=== PATIENT | male | born 1965 | race Caucasian/White ===

== ENCOUNTER 2020-06-01 01:18 | Inpatient (IN) ==
--- NOTE | 2020-06-01 01:33 | DR.URIAD ---
HPI Time Seen Time Seen by Provider: 06/01/20 01:25 HPI Comment HPI Comment: 54 y/o overweight WM with no h/o of cigarettes, copd or asthma with worsening sob for the past day or so; diagnosed with covid19 a week ago today and currently on second round of abx and steroids due to persistent cough and congestion; "low grade" fever has recurred; no cp, palpitations, abd pain, n/v/d. ROS Review of Systems Eyes: No Symptoms Reported ENTM: No Symptoms Reported Gastrointestinal/Abdominal: No Symptoms Reported Genitourinary: No Symptoms Reported Neurological: No Symptoms Reported Musculoskeletal: No Symptoms Reported Integumentary: No Symptoms Reported Hematologic/Lymphatic: No Symptoms Reported Endocrine: No Symptoms Reported Psychiatric: No Symptoms Reported PE Vital Signs Vitals: Temperature 98.6 F Pulse Rate 102 Respiratory Rate 26 Blood Pressure 167/93 O2 Sat by Pulse Oximetry 89 General Limitations: No Limitations General Appearance: In No Apparent Distress Head Head Exam: Normal Inspection Eyes Eye exam: Normal Appearance ENT ENT Exam: Normal Exam External Ear Exam: Normal External Inspection TM/Canal Exam: Bilateral: Normal Nose Exam: Normal Nose Exam Nasal Speculum Exam: Bilateral: Normal Mouth Exam: Normal Inspection Throat Exam: Normal Inspection Neck Neck Exam: Normal Inspection Chest Chest Inspection: Normal Inspection Respiratory Respiratory Exam: Right: Crackles and Lower: Crackles Cardiovascular Cardiovascular Exam: Regular Rate and Normal Rhythm Abdominal Exam Abdominal Exam: Normal Inspection, Normal Bowel Sounds and Soft Extremeties Extremities Exam: Normal Inspection Back Back Exam: Normal Inspection Neurologic Neurological Exam: Alert and Oriented X3 Psychiatric Psychiatric Exam: Normal Affect and Normal Mood Skin Skin Exam: Warm, Dry, Intact and Normal Color COURSE Consultation Call Returned: 03:43 (Dr Bell accepts admission) ROR Labs Reviewed Laboratory Results Reviewed?: Yes Result Diagrams: 06/01/20 01:30 06/01/20 01:30 Laboratory: WBC 18.7 X10^3/uL (3.6-10.0) H 06/01/20 01:30 RBC 5.84 X10^6/uL (4.7-6.0) 06/01/20 01:30 Hgb 18.2 g/dL (13.5-18.0) H 06/01/20 01:30 Hct 53.7 % (42.0-54.0) 06/01/20 01:30 MCV 92.0 fL (80.0-100.0) 06/01/20 01:30 MCH 31.2 pg (27.0-34.0) 06/01/20 01:30 MCHC 33.9 g/dL (33.0-35.0) 06/01/20 01:30 RDW 13.5 % (11.6-16.5) 06/01/20 01:30 Plt Count 234 X10^3/uL (150.0-450.0) 06/01/20 01:30 Plt Count Comment Adequate (ADEQUATE) 06/01/20 01:30 MPV 8.0 fL (7.4-11.0) 06/01/20 01:30 Neut % (Auto) 92.1 % (42.0-75.0) H 06/01/20 01:30 Lymph % (Auto) 2.9 % (21.0-51.0) L 06/01/20 01:30 [place] % (Auto) 4.9 % (0.0-13.0) 06/01/20 01:30 Eos % (Auto) 0.0 % (0.9-2.9) L 06/01/20 01:30 Baso % (Auto) 0.1 % (0.2-1.0) L 06/01/20 01:30 Neut # (Auto) 17.2 x10^3/uL (2.2-4.8) H 06/01/20 01:30 Lymph # (Auto) 0.5 X10^3/uL (1.3-2.9) L 06/01/20 01:30 [place] # (Auto) 0.9 x10^3/uL (0.3-0.8) H 06/01/20 01:30 Eos # (Auto) 0.0 x10^3/uL (0.0-0.2) 06/01/20 01:30 Baso # (Auto) 0.0 X10^3/uL (0.0-0.1) 06/01/20 01:30 Absolute Nucleated RBC 0.1 /100WBC 06/01/20 01:30 Total Counted 100 06/01/20 01:30 Neutrophils % (Manual) 90 % (39-76) H 06/01/20 01:30 Band Neutrophils % 3 % (0-10) 06/01/20 01:30 Lymphocytes % (Manual) 5 % (13-43) L 06/01/20 01:30 Monocytes % (Manual) 2 % (4-9) L 06/01/20 01:30 Plt Morphology Comment Normal (NORMAL) 06/01/20 01:30 RBC Morphology Normal (NORMAL) 06/01/20 01:30 ESR 16 MM/HOUR (0-15) H 06/01/20 01:30 D-Dimer 0.24 ug/ml (0.0-0.57) 06/01/20 01:30 Sample Site Rrad 06/01/20 01:44 ABG pH 7.470 (7.35-7.45) H 06/01/20 01:44 ABG pCO2 38.0 mmHg (35.0-45.0) 06/01/20 01:44 ABG pO2 58.0 mmHg (80.0-100.0) L 06/01/20 01:44 ABG HCO3 27.7 mmol/L (22-26) H 06/01/20 01:44 ABG O2 Saturation 91.0 % (90-100) 06/01/20 01:44 ABG Base Excess 3.9 mmol/L (-2.0-2.0) H 06/01/20 01:44 Skyler Test Pos 06/01/20 01:44 A-a Gradient 123.0 mmHg 06/01/20 01:44 FiO2 32.0 06/01/20 01:44 Blood Gas Comments Tomas abg well-mtf 06/01/20 01:44 Sodium 130 mmol/L (136-145) L 06/01/20 01:30 Corrected Sodium 134 mmol/L (136-145) L 06/01/20 01:30 Potassium 4.4 mmol/L (3.5-5.1) 06/01/20 01:30 Chloride 94 mmol/L (98-107) L 06/01/20 01:30 Carbon Dioxide 27.0 mmol/L (21-32) 06/01/20 01:30 BUN 17 mg/dL (7-18) 06/01/20 01:30 Creatinine 1.35 mg/dL (0.70-1.30) H 06/01/20 01:30 Est GFR (MDRD) Af Amer > 60 (>60) 06/01/20 01:30 Est GFR (MDRD) Non-Af 58 (>60) L 06/01/20 01:30 Glucose 247 mg/dL (65-99) H 06/01/20 01:30 Calcium 8.6 mg/dL (8.5-10.1) 06/01/20 01:30 Corrected Calcium 9.3 mg/dL (8.5-10.1) 06/01/20 01:30 Ferritin 957 ng/mL (26-388) H 06/01/20 01:30 Total Bilirubin 0.70 mg/dL (0.2-1.0) 06/01/20 01:30 AST 24 Units/L (15-37) 06/01/20 01:30 ALT 90 Units/L (12-78) H 06/01/20 01:30 Alkaline Phosphatase 93 Units/L (46-116) 06/01/20 01:30 Lactate Dehydrogenase 337 Units/L (85-227) H 06/01/20 01:30 C-Reactive Protein 126.40 mg/L (0-3.0) H 06/01/20 01:30 Total Protein 7.1 g/dL (6.4-8.2) 06/01/20 01:30 Albumin 3.1 g/dL (3.4-5.0) L 06/01/20 01:30 Globulin 4.0 g/dL (2.5-4.5) 06/01/20 01:30 Albumin/Globulin Ratio 0.8 Ratio (1.1-2.1) L 06/01/20 01:30 XRAY XRAY Interpreted by: Radiologist X-ray Results: cxr: Multifocal alveolar airspace disease is seen in the right and left lung. Opioid Opioid Risk Tool Total: 0 Total Score Risk Category: Low Risk Copyright: Linder LR predicting aberrant behaviors Diagnosis Discharge Problem: Pneumonia due to 2019-nCoV, COVID-19, Hypoxia, Acute hyponatremia, Hyperglycemi a Sepsis Qualifiers: Sepsis type: sepsis due to unspecified organism Sepsis acute organ dysfunction status: with acute organ dysfunction Severe sepsis acute organ dysfunction type: acute renal failure Acute renal failure type: unspecified Severe sepsis shock status: without septic shock Qualified Code(s): A41.9 - Sepsis, unspecified organism Instructions Instructions: Sepsis, Adult Forms: Patient Portal Social Distancing
[2020-06-01 01:48] LABS: ABG BASE EXCESS 3.9 mmol/L (-2.0-2.0); ABG HCO3 27.7 mmol/L (22-26)
[2020-06-01 01:48] LABS: BASOPHILS % (AUTO) 0.1 % (0.2-1.0); HEMATOCRIT 53.7 % (42.0-54.0); HEMOGLOBIN 18.2 g/dL (13.5-18.0); LYMPHOCYTES # (AUTO) 0.5 X10^3/uL (1.3-2.9); LYMPHOCYTES % (AUTO) 2.9 % (21.0-51.0); MEAN CORPUSCULAR HEMOGLOBIN 31.2 pg (27.0-34.0); MEAN CORPUSCULAR HGB CONC 33.9 g/dL (33.0-35.0); MONOCYTES # (AUTO) 0.9 x10^3/uL (0.3-0.8); MONOCYTES % (AUTO) 4.9 % (0.0-13.0); NEUTROPHILS # (AUTO) 17.2 x10^3/uL (2.2-4.8); NEUTROPHILS % (AUTO) 92.1 % (42.0-75.0); PLATELET COUNT 234 X10^3/uL (150.0-450.0); RED BLOOD COUNT 5.84 X10^6/uL (4.7-6.0); RED CELL DISTRIBUTION WIDTH 13.5 % (11.6-16.5); WHITE BLOOD COUNT 18.7 X10^3/uL (3.6-10.0)
[2020-06-01 01:49] LABS: ABG ALLEN TEST POS
[2020-06-01 01:58] LABS: ALANINE AMINOTRANSFERASE 90 Units/L (12-78); ALBUMIN 3.1 g/dL (3.4-5.0); ALKALINE PHOSPHATASE 93 Units/L (46-116); ASPARTATE AMINO TRANSFERASE 24 Units/L (15-37); BLOOD UREA NITROGEN 17 mg/dL (7-18); CALCIUM 8.6 mg/dL (8.5-10.1); CHLORIDE 94 mmol/L (98-107); COR CA(FOR HYPOALB) 9.3 mg/dL (8.5-10.1); COR NA(FOR HYPERGLY) 134 mmol/L (136-145); CREATININE 1.35 mg/dL (0.70-1.30); LACTATE DEHYDROGENASE 337 Units/L (85-227); SODIUM 130 mmol/L (136-145); TOTAL PROTEIN 7.1 g/dL (6.4-8.2); eGFR NON BLACK RACES 58 (>60)
[2020-06-01 02:04] LABS: BAND NEUTROPHILS % 3 % (0-10); PLATELET MORPHOLOGY COMMENT NORMAL (NORMAL)
--- NOTE | 2020-06-01 02:15 | RAD ---
STUDY: CHEST, 1 VIEWCOMPARISON: NoneHISTORY: PT STATES HE IS COVID+ AND IS HAVING INCREASING SOBFINDINGS:Multifocal alveolar airspace disease is seen in the right and left lung.Heart size is enlarged.No pericardial effusion or pneumothorax is seen. The trachea is midline.IMPRESSION:Findings are worrisome for COVID-19 pneumonia.Electronically signed by: Chace Mathis (Jun 01, 2020 02:14:35)
[2020-06-01] MEDS ORDERED: SOLU-Medrol 125 MG VIAL IVP ONE (02:27)
[2020-06-01] MEDS ORDERED: NS 1000 ML 1,000 ML IV ONE (02:30)
[2020-06-01 02:31] LABS: ERYTHROCYTE SEDIMENTATION RATE 16 MM/HOUR (0-15)
[2020-06-01] MEDS ORDERED: SOLU-Medrol 125 MG VIAL ONE (02:31)
[2020-06-01] MEDS ORDERED: NS 1000 ML 1,000 ML ONE (02:34)
[2020-06-01] MEDS ORDERED: VIBRAMYCIN IV ONE (02:41)
[2020-06-01] MEDS ORDERED: D5W 250 ML IV 250 ML IV ONE (02:41)
[2020-06-01] MEDS ORDERED: VIBRAMYCIN 100 MG in D5W 250 ML IV 250 ML IV SCH (03:00)
[2020-06-01] MEDS: NS 1000 ML 1,000 ML IV SCH (04:47)
[2020-06-01 05:10] LABS: BASOPHILS # (AUTO) 0.1 X10^3/uL (0.0-0.1); BASOPHILS % (AUTO) 0.7 % (0.2-1.0); EOSINOPHILS % (AUTO) 0.2 % (0.9-2.9); HEMATOCRIT 52.3 % (42.0-54.0); HEMOGLOBIN 17.6 g/dL (13.5-18.0); LYMPHOCYTES # (AUTO) 0.4 X10^3/uL (1.3-2.9); LYMPHOCYTES % (AUTO) 2.1 % (21.0-51.0); MEAN CORPUSCULAR HEMOGLOBIN 31.2 pg (27.0-34.0); MEAN CORPUSCULAR HGB CONC 33.6 g/dL (33.0-35.0); MEAN CORPUSCULAR VOLUME 92.8 fL (80.0-100.0); MEAN PLATELET VOLUME 7.9 fL (7.4-11.0); MONOCYTES # (AUTO) 0.6 x10^3/uL (0.3-0.8); MONOCYTES % (AUTO) 3.5 % (0.0-13.0); NEUTROPHILS # (AUTO) 15.3 x10^3/uL (2.2-4.8); NEUTROPHILS % (AUTO) 93.5 % (42.0-75.0); PLATELET COUNT 218 X10^3/uL (150.0-450.0); RED BLOOD COUNT 5.64 X10^6/uL (4.7-6.0); RED CELL DISTRIBUTION WIDTH 13.7 % (11.6-16.5); WHITE BLOOD COUNT 16.3 X10^3/uL (3.6-10.0)
[2020-06-01 05:19] LABS: HEMOGLOBIN A1C 6.2 %
[2020-06-01 05:24] LABS: ALANINE AMINOTRANSFERASE 80 Units/L (12-78); ALBUMIN 2.8 g/dL (3.4-5.0); ALKALINE PHOSPHATASE 86 Units/L (46-116); ASPARTATE AMINO TRANSFERASE 25 Units/L (15-37); BLOOD UREA NITROGEN 17 mg/dL (7-18); CALCIUM 8.4 mg/dL (8.5-10.1); CARBON DIOXIDE 25.2 mmol/L (21-32); CHLORIDE 96 mmol/L (98-107); COR CA(FOR HYPOALB) 9.4 mg/dL (8.5-10.1); COR NA(FOR HYPERGLY) 135 mmol/L (136-145); SODIUM 131 mmol/L (136-145); TOTAL PROTEIN 6.7 g/dL (6.4-8.2); eGFR NON BLACK RACES > 60 (>60)
[2020-06-01 05:40] LABS: BAND NEUTROPHILS % 3 % (0-10); PLATELET MORPHOLOGY COMMENT NORMAL (NORMAL)
[2020-06-01] MEDS ORDERED: REMDESIVIR 200 MG in NS 250 ML IV 250 ML IV NR (08:00)
[2020-06-01] MEDS: DECADRON TAB PO SCH (08:15)
[2020-06-01] MEDS: ASCORBIC ACID INJ MULTI-DOSE VIAL 1,500 MG in NS 100 ML IV 100 ML IV SCH ×3 (08:15→21:58)
[2020-06-01] MEDS: LOVENOX INJ 30 MG SYR SC SCH ×2 (08:16→22:00)
[2020-06-01] MEDS: VIBRAMYCIN PO SCH ×2 (08:16→22:00)
[2020-06-01] MEDS: TRICOR TAB 160 MG PO SCH (08:16)
[2020-06-01] MEDS: XANAX PO PRN ×2 (08:17→19:23)
[2020-06-01] MEDS: LIPITOR TAB 40 MG PO SCH (08:32)
[2020-06-01] MEDS: THIAMINE HCL INJ IVP SCH ×2 (08:32→22:00)
[2020-06-01] MEDS: PEPCID TAB 20 MG PO SCH ×2 (08:32→22:00)
[2020-06-01] MEDS: ZINC SULFATE PO SCH ×2 (08:33→22:00)
[2020-06-01] MEDS ORDERED: VITAMIN A PO SCH (09:00)
[2020-06-01] MEDS ORDERED: VITAMIN D (1.25MG) PO SCH (09:00)
[2020-06-01] MEDS ORDERED: IVERMECTIN PO NR (09:20)
[2020-06-01] MEDS ORDERED: TESSALON PERLES PO PRN (09:23)
[2020-06-01] MEDS: COREG TAB 25 MG PO SCH ×2 (10:35→22:00)
[2020-06-01] MEDS: SYNTHROID 25 mcg TAB PO SCH (10:35)
[2020-06-02] MEDS: XANAX PO PRN ×4 (01:33→22:35)
[2020-06-02] MEDS: ASCORBIC ACID INJ MULTI-DOSE VIAL 1,500 MG in NS 100 ML IV 100 ML IV SCH ×4 (03:16→20:55)
[2020-06-02] MEDS: NS 1000 ML 1,000 ML IV SCH (05:26)
[2020-06-02 05:55] LABS: BASOPHILS % (AUTO) 0.1 % (0.2-1.0); HEMATOCRIT 50.5 % (42.0-54.0); HEMOGLOBIN 16.6 g/dL (13.5-18.0); LYMPHOCYTES # (AUTO) 0.7 X10^3/uL (1.3-2.9); LYMPHOCYTES % (AUTO) 4.1 % (21.0-51.0); MEAN CORPUSCULAR HEMOGLOBIN 30.6 pg (27.0-34.0); MEAN CORPUSCULAR HGB CONC 32.8 g/dL (33.0-35.0); MEAN CORPUSCULAR VOLUME 93.4 fL (80.0-100.0); MEAN PLATELET VOLUME 8.4 fL (7.4-11.0); MONOCYTES # (AUTO) 1.3 x10^3/uL (0.3-0.8); MONOCYTES % (AUTO) 7.6 % (0.0-13.0); NEUTROPHILS # (AUTO) 14.9 x10^3/uL (2.2-4.8); NEUTROPHILS % (AUTO) 88.2 % (42.0-75.0); PLATELET COUNT 251 X10^3/uL (150.0-450.0); RED BLOOD COUNT 5.41 X10^6/uL (4.7-6.0); RED CELL DISTRIBUTION WIDTH 13.8 % (11.6-16.5); WHITE BLOOD COUNT 16.9 X10^3/uL (3.6-10.0)
[2020-06-02 06:02] VITALS: BMI 36.0
[2020-06-02 06:10] LABS: ALANINE AMINOTRANSFERASE 59 Units/L (12-78); ALBUMIN 2.6 g/dL (3.4-5.0); ALKALINE PHOSPHATASE 76 Units/L (46-116); ASPARTATE AMINO TRANSFERASE 23 Units/L (15-37); BLOOD UREA NITROGEN 28 mg/dL (7-18); CALCIUM 8.4 mg/dL (8.5-10.1); CARBON DIOXIDE 26.7 mmol/L (21-32); CHLORIDE 99 mmol/L (98-107); COR CA(FOR HYPOALB) 9.5 mg/dL (8.5-10.1); COR NA(FOR HYPERGLY) 136 mmol/L (136-145); CREATININE 1.23 mg/dL (0.70-1.30); SODIUM 134 mmol/L (136-145); TOTAL PROTEIN 6.3 g/dL (6.4-8.2); eGFR NON BLACK RACES > 60 (>60)
[2020-06-02] MEDS: DECADRON TAB PO SCH (08:04)
[2020-06-02] MEDS: LIPITOR TAB 40 MG PO SCH (08:04)
[2020-06-02] MEDS: SYNTHROID 25 mcg TAB PO SCH (08:05)
[2020-06-02] MEDS: LOVENOX INJ 30 MG SYR SC SCH ×2 (08:06→20:55)
[2020-06-02] MEDS: COREG TAB 25 MG PO SCH ×2 (08:06→20:55)
[2020-06-02] MEDS: PEPCID TAB 20 MG PO SCH ×2 (08:07→20:55)
[2020-06-02] MEDS: THIAMINE HCL INJ IVP SCH ×2 (08:07→20:55)
[2020-06-02] MEDS: VIBRAMYCIN PO SCH ×2 (08:08→20:55)
[2020-06-02] MEDS: TRICOR TAB 160 MG PO SCH (08:08)
[2020-06-02] MEDS: ZINC SULFATE PO SCH ×2 (08:08→20:55)
[2020-06-02] MEDS: REMDESIVIR 100 MG in NS 250 ML IV 250 ML IV SCH (09:00)
[2020-06-02] MEDS: PULMICORT NEB TX 0.5 MG NEB SCH ×2 (13:30→21:50)
[2020-06-02] MEDS: PROVENTIL NEB TX 0.083% 2.5MG/ 3ML NEB SCH ×2 (13:30→21:50)
[2020-06-02] MEDS: ROBITUSSIN AC PO PRN (20:55)
[2020-06-03] MEDS: ASCORBIC ACID INJ MULTI-DOSE VIAL 1,500 MG in NS 100 ML IV 100 ML IV SCH ×4 (02:55→21:00)
[2020-06-03] MEDS: NS 1000 ML 1,000 ML IV SCH ×2 (03:27→19:03)
[2020-06-03 05:41] LABS: ALANINE AMINOTRANSFERASE 55 Units/L (12-78); ALBUMIN 2.4 g/dL (3.4-5.0); ALKALINE PHOSPHATASE 74 Units/L (46-116); ASPARTATE AMINO TRANSFERASE 24 Units/L (15-37); BLOOD UREA NITROGEN 30 mg/dL (7-18); CALCIUM 8.3 mg/dL (8.5-10.1); CARBON DIOXIDE 28.4 mmol/L (21-32); CHLORIDE 101 mmol/L (98-107); COR CA(FOR HYPOALB) 9.6 mg/dL (8.5-10.1); COR NA(FOR HYPERGLY) 137 mmol/L (136-145); CREATININE 1.22 mg/dL (0.70-1.30); SODIUM 136 mmol/L (136-145); TOTAL PROTEIN 5.9 g/dL (6.4-8.2); eGFR NON BLACK RACES > 60 (>60)
[2020-06-03 05:46] LABS: BASOPHILS % (AUTO) 0.1 % (0.2-1.0); HEMATOCRIT 49.1 % (42.0-54.0); HEMOGLOBIN 16.4 g/dL (13.5-18.0); LYMPHOCYTES # (AUTO) 0.9 X10^3/uL (1.3-2.9); LYMPHOCYTES % (AUTO) 5.1 % (21.0-51.0); MEAN CORPUSCULAR HEMOGLOBIN 30.9 pg (27.0-34.0); MEAN CORPUSCULAR HGB CONC 33.3 g/dL (33.0-35.0); MEAN CORPUSCULAR VOLUME 92.8 fL (80.0-100.0); MEAN PLATELET VOLUME 8.2 fL (7.4-11.0); MONOCYTES # (AUTO) 1.5 x10^3/uL (0.3-0.8); MONOCYTES % (AUTO) 8.1 % (0.0-13.0); NEUTROPHILS # (AUTO) 15.6 x10^3/uL (2.2-4.8); NEUTROPHILS % (AUTO) 86.7 % (42.0-75.0); PLATELET COUNT 248 X10^3/uL (150.0-450.0); RED BLOOD COUNT 5.29 X10^6/uL (4.7-6.0); RED CELL DISTRIBUTION WIDTH 13.9 % (11.6-16.5)
[2020-06-03] MEDS: XANAX PO PRN ×3 (06:15→21:00)
--- NOTE | 2020-06-03 08:04 | RAD ---
HISTORYCOVIDSTUDYCHEST, 1 [id number]/04/2021FINDINGSThere is more opacity in the lungs than previously. This represents a progression of pneumonia.No significant effusion. No pneumothorax.The heart size is magnified.Bones are unremarkable.EKG leads are noted.IMPRESSION1. Progressed pneumoniaElectronically signed by: Jeffrey Gomez (Jun 03, 2020 08:03:12)
[2020-06-03] MEDS: PULMICORT NEB TX 0.5 MG NEB SCH ×2 (09:03→21:05)
[2020-06-03] MEDS: PROVENTIL NEB TX 0.083% 2.5MG/ 3ML NEB SCH ×2 (09:03→21:05)
[2020-06-03] MEDS: IVERMECTIN PO SCH (09:57)
[2020-06-03] MEDS: COREG TAB 25 MG PO SCH ×2 (09:57→21:00)
[2020-06-03] MEDS: LIPITOR TAB 40 MG PO SCH (09:58)
[2020-06-03] MEDS: VIBRAMYCIN PO SCH ×2 (09:58→21:00)
[2020-06-03] MEDS: VITAMIN D3 125 mcg (5,000 UNITS) PO SCH (09:58)
[2020-06-03] MEDS: ZINC SULFATE PO SCH ×2 (09:58→21:00)
[2020-06-03] MEDS: TRICOR TAB 160 MG PO SCH (09:58)
[2020-06-03] MEDS: SYNTHROID 25 mcg TAB PO SCH (09:59)
[2020-06-03] MEDS: THIAMINE HCL INJ IVP SCH ×2 (09:59→21:00)
[2020-06-03] MEDS: DECADRON TAB PO SCH (09:59)
[2020-06-03] MEDS: PEPCID TAB 20 MG PO SCH ×2 (09:59→21:00)
[2020-06-03] MEDS: LOVENOX INJ 30 MG SYR SC SCH ×2 (10:00→21:00)
[2020-06-03] MEDS: REMDESIVIR 100 MG in NS 250 ML IV 250 ML IV SCH (11:45)
[2020-06-03] MEDS: MOTRIN TAB 800 MG PO PRN ×2 (12:50→21:00)
[2020-06-03] MEDS: TESSALON PERLES PO SCH ×2 (12:51→21:00)
[2020-06-03] MEDS: ROBITUSSIN AC PO PRN (21:00)
[2020-06-04] MEDS: ASCORBIC ACID INJ MULTI-DOSE VIAL 1,500 MG in NS 100 ML IV 100 ML IV SCH ×4 (04:00→21:03)
[2020-06-04] MEDS: NS 1000 ML 1,000 ML IV SCH (04:00)
[2020-06-04] MEDS: TESSALON PERLES PO SCH ×3 (05:10→22:02)
[2020-06-04 06:08] LABS: BASOPHILS % (AUTO) 0.1 % (0.2-1.0); EOSINOPHILS % (AUTO) 0.1 % (0.9-2.9); HEMATOCRIT 45.2 % (42.0-54.0); HEMOGLOBIN 15.3 g/dL (13.5-18.0); LYMPHOCYTES # (AUTO) 0.7 X10^3/uL (1.3-2.9); LYMPHOCYTES % (AUTO) 4.3 % (21.0-51.0); MEAN CORPUSCULAR HEMOGLOBIN 31.2 pg (27.0-34.0); MEAN CORPUSCULAR HGB CONC 33.9 g/dL (33.0-35.0); MEAN CORPUSCULAR VOLUME 92.1 fL (80.0-100.0); MONOCYTES # (AUTO) 1.3 x10^3/uL (0.3-0.8); MONOCYTES % (AUTO) 7.6 % (0.0-13.0); NEUTROPHILS # (AUTO) 14.9 x10^3/uL (2.2-4.8); NEUTROPHILS % (AUTO) 87.9 % (42.0-75.0); PLATELET COUNT 233 X10^3/uL (150.0-450.0); RED BLOOD COUNT 4.91 X10^6/uL (4.7-6.0); RED CELL DISTRIBUTION WIDTH 13.5 % (11.6-16.5)
[2020-06-04 06:13] LABS: ABG ALLEN TEST POS; ABG BASE EXCESS 3.9 mmol/L (-2.0-2.0); ABG HCO3 27.7 mmol/L (22-26)
[2020-06-04 06:28] LABS: ALANINE AMINOTRANSFERASE 63 Units/L (12-78); ALBUMIN 2.2 g/dL (3.4-5.0); ALKALINE PHOSPHATASE 83 Units/L (46-116); ASPARTATE AMINO TRANSFERASE 30 Units/L (15-37); BLOOD UREA NITROGEN 28 mg/dL (7-18); CARBON DIOXIDE 26.5 mmol/L (21-32); CHLORIDE 103 mmol/L (98-107); COR CA(FOR HYPOALB) 9.4 mg/dL (8.5-10.1); COR NA(FOR HYPERGLY) 138 mmol/L (136-145); CREATININE 1.06 mg/dL (0.70-1.30); SODIUM 136 mmol/L (136-145); TOTAL PROTEIN 5.4 g/dL (6.4-8.2); eGFR NON BLACK RACES > 60 (>60)
[2020-06-04 06:56] LABS: PLATELET MORPHOLOGY COMMENT NORMAL (NORMAL)
[2020-06-04] MEDS: SYNTHROID 25 mcg TAB PO SCH (09:10)
[2020-06-04] MEDS: XANAX PO PRN ×3 (09:10→22:00)
[2020-06-04] MEDS: LIPITOR TAB 40 MG PO SCH (09:10)
[2020-06-04] MEDS: VITAMIN D3 125 mcg (5,000 UNITS) PO SCH (09:10)
[2020-06-04] MEDS: VIBRAMYCIN PO SCH ×2 (09:10→21:05)
[2020-06-04] MEDS: ZINC SULFATE PO SCH ×2 (09:10→21:05)
[2020-06-04] MEDS: THIAMINE HCL INJ IVP SCH ×2 (09:10→21:10)
[2020-06-04] MEDS: TRICOR TAB 160 MG PO SCH (09:10)
[2020-06-04] MEDS: COREG TAB 25 MG PO SCH ×2 (09:10→21:22)
[2020-06-04] MEDS: LOVENOX INJ 30 MG SYR SC SCH ×2 (09:17→21:21)
[2020-06-04] MEDS: DECADRON TAB PO SCH (09:17)
[2020-06-04] MEDS: PROVENTIL NEB TX 0.083% 2.5MG/ 3ML NEB SCH ×2 (09:50→20:14)
[2020-06-04] MEDS: PULMICORT NEB TX 0.5 MG NEB SCH ×2 (09:50→20:14)
[2020-06-04] MEDS: PEPCID TAB 20 MG PO SCH ×2 (10:22→21:05)
[2020-06-04] MEDS: REMDESIVIR 100 MG in NS 250 ML IV 250 ML IV SCH (10:22)
[2020-06-04] MEDS: ROBITUSSIN AC PO PRN (19:35)
[2020-06-04] MEDS: MOTRIN TAB 800 MG PO PRN (22:01)
[2020-06-04] MEDS: RESTORIL CAP 30 MG PO PRN (22:01)
[2020-06-05] MEDS: ASCORBIC ACID INJ MULTI-DOSE VIAL 1,500 MG in NS 100 ML IV 100 ML IV SCH ×4 (02:36→21:11)
[2020-06-05] MEDS: NS 1000 ML 1,000 ML IV SCH (03:54)
[2020-06-05] MEDS: TESSALON PERLES PO SCH ×3 (05:40→22:09)
[2020-06-05] MEDS: MOTRIN TAB 800 MG PO PRN ×2 (06:18→22:09)
[2020-06-05 06:23] LABS: BASOPHILS % (AUTO) 0.1 % (0.2-1.0); EOSINOPHILS % (AUTO) 0.1 % (0.9-2.9); HEMATOCRIT 44.6 % (42.0-54.0); LYMPHOCYTES # (AUTO) 0.8 X10^3/uL (1.3-2.9); LYMPHOCYTES % (AUTO) 4.3 % (21.0-51.0); MEAN CORPUSCULAR HEMOGLOBIN 31.1 pg (27.0-34.0); MEAN CORPUSCULAR HGB CONC 33.6 g/dL (33.0-35.0); MEAN CORPUSCULAR VOLUME 92.4 fL (80.0-100.0); MEAN PLATELET VOLUME 8.1 fL (7.4-11.0); MONOCYTES # (AUTO) 1.5 x10^3/uL (0.3-0.8); MONOCYTES % (AUTO) 8.2 % (0.0-13.0); NEUTROPHILS % (AUTO) 87.3 % (42.0-75.0); PLATELET COUNT 239 X10^3/uL (150.0-450.0); RED BLOOD COUNT 4.83 X10^6/uL (4.7-6.0); RED CELL DISTRIBUTION WIDTH 13.8 % (11.6-16.5); WHITE BLOOD COUNT 18.3 X10^3/uL (3.6-10.0)
[2020-06-05 06:34] LABS: ALANINE AMINOTRANSFERASE 60 Units/L (12-78); ALBUMIN 2.2 g/dL (3.4-5.0); ALKALINE PHOSPHATASE 87 Units/L (46-116); ASPARTATE AMINO TRANSFERASE 30 Units/L (15-37); BLOOD UREA NITROGEN 23 mg/dL (7-18); CALCIUM 8.1 mg/dL (8.5-10.1); CARBON DIOXIDE 27.8 mmol/L (21-32); CHLORIDE 102 mmol/L (98-107); COR CA(FOR HYPOALB) 9.5 mg/dL (8.5-10.1); COR NA(FOR HYPERGLY) 138 mmol/L (136-145); CREATININE 1.17 mg/dL (0.70-1.30); SODIUM 136 mmol/L (136-145); TOTAL PROTEIN 5.4 g/dL (6.4-8.2); eGFR NON BLACK RACES > 60 (>60)
[2020-06-05 08:04] LABS: BAND NEUTROPHILS % 6 % (0-10)
[2020-06-05 08:05] LABS: PLATELET MORPHOLOGY COMMENT NORMAL (NORMAL)
[2020-06-05] MEDS: ZINC SULFATE PO SCH ×2 (09:30→21:12)
[2020-06-05] MEDS: VITAMIN D3 125 mcg (5,000 UNITS) PO SCH (09:30)
[2020-06-05] MEDS: SYNTHROID 25 mcg TAB PO SCH (09:31)
[2020-06-05] MEDS: PEPCID TAB 20 MG PO SCH ×2 (09:31→21:12)
[2020-06-05] MEDS: VIBRAMYCIN PO SCH ×2 (09:31→21:12)
[2020-06-05] MEDS: THIAMINE HCL INJ IVP SCH ×2 (09:32→21:12)
[2020-06-05] MEDS: LIPITOR TAB 40 MG PO SCH (09:32)
[2020-06-05] MEDS: DECADRON TAB PO SCH (09:32)
[2020-06-05] MEDS: TRICOR TAB 160 MG PO SCH (09:32)
[2020-06-05] MEDS: COREG TAB 25 MG PO SCH ×2 (09:33→21:11)
[2020-06-05] MEDS: LOVENOX INJ 30 MG SYR SC SCH ×2 (09:35→21:10)
[2020-06-05] MEDS: IVERMECTIN PO SCH (09:40)
[2020-06-05] MEDS: PROVENTIL NEB TX 0.083% 2.5MG/ 3ML NEB SCH ×2 (10:00→21:10)
[2020-06-05] MEDS: PULMICORT NEB TX 0.5 MG NEB SCH ×2 (10:00→21:10)
[2020-06-05] MEDS: RHINOCORT ALLERGY NASAL SPRAY ENOSTRIL SCH ×2 (19:23→21:59)
[2020-06-05] MEDS: ROBITUSSIN AC PO PRN (20:00)
[2020-06-05] MEDS: RESTORIL CAP 30 MG PO PRN (21:58)
[2020-06-05] MEDS: XANAX PO PRN (21:58)
[2020-06-06] MEDS: ASCORBIC ACID INJ MULTI-DOSE VIAL 1,500 MG in NS 100 ML IV 100 ML IV SCH ×4 (02:45→21:15)
[2020-06-06] MEDS: NS 1000 ML 1,000 ML IV SCH ×2 (04:21→05:47)
[2020-06-06 05:44] LABS: BASOPHILS % (AUTO) 0.2 % (0.2-1.0); EOSINOPHILS % (AUTO) 0.1 % (0.9-2.9); HEMATOCRIT 47.3 % (42.0-54.0); HEMOGLOBIN 15.7 g/dL (13.5-18.0); LYMPHOCYTES # (AUTO) 0.8 X10^3/uL (1.3-2.9); LYMPHOCYTES % (AUTO) 4.4 % (21.0-51.0); MEAN CORPUSCULAR HEMOGLOBIN 30.8 pg (27.0-34.0); MEAN CORPUSCULAR HGB CONC 33.3 g/dL (33.0-35.0); MEAN CORPUSCULAR VOLUME 92.6 fL (80.0-100.0); MEAN PLATELET VOLUME 8.2 fL (7.4-11.0); MONOCYTES # (AUTO) 1.3 x10^3/uL (0.3-0.8); MONOCYTES % (AUTO) 7.2 % (0.0-13.0); NEUTROPHILS # (AUTO) 16.3 x10^3/uL (2.2-4.8); NEUTROPHILS % (AUTO) 88.1 % (42.0-75.0); PLATELET COUNT 255 X10^3/uL (150.0-450.0); RED BLOOD COUNT 5.11 X10^6/uL (4.7-6.0); RED CELL DISTRIBUTION WIDTH 13.6 % (11.6-16.5); WHITE BLOOD COUNT 18.5 X10^3/uL (3.6-10.0)
[2020-06-06] MEDS: MOTRIN TAB 800 MG PO PRN ×3 (05:48→23:48)
[2020-06-06] MEDS: TESSALON PERLES PO SCH ×3 (05:48→21:15)
[2020-06-06] MEDS: RHINOCORT ALLERGY NASAL SPRAY ENOSTRIL SCH ×3 (05:50→21:15)
[2020-06-06] MEDS: ROBITUSSIN AC PO PRN ×3 (06:00→23:48)
[2020-06-06 06:09] LABS: ALANINE AMINOTRANSFERASE 58 Units/L (12-78); ALBUMIN 2.2 g/dL (3.4-5.0); ALKALINE PHOSPHATASE 107 Units/L (46-116); ASPARTATE AMINO TRANSFERASE 31 Units/L (15-37); BLOOD UREA NITROGEN 22 mg/dL (7-18); CALCIUM 8.3 mg/dL (8.5-10.1); CARBON DIOXIDE 27.3 mmol/L (21-32); CHLORIDE 102 mmol/L (98-107); COR CA(FOR HYPOALB) 9.7 mg/dL (8.5-10.1); COR NA(FOR HYPERGLY) 138 mmol/L (136-145); CREATININE 1.04 mg/dL (0.70-1.30); SODIUM 135 mmol/L (136-145); TOTAL PROTEIN 5.7 g/dL (6.4-8.2); eGFR NON BLACK RACES > 60 (>60)
[2020-06-06] MEDS: PEPCID TAB 20 MG PO SCH ×2 (08:58→21:15)
[2020-06-06] MEDS: LIPITOR TAB 40 MG PO SCH (08:58)
[2020-06-06] MEDS: VITAMIN D3 125 mcg (5,000 UNITS) PO SCH (08:59)
[2020-06-06] MEDS: COREG TAB 25 MG PO SCH ×2 (08:59→21:15)
[2020-06-06] MEDS: ZINC SULFATE PO SCH ×2 (08:59→21:15)
[2020-06-06] MEDS: SYNTHROID 25 mcg TAB PO SCH (08:59)
[2020-06-06] MEDS: LOVENOX INJ 30 MG SYR SC SCH ×2 (09:06→21:15)
[2020-06-06] MEDS: PULMICORT NEB TX 0.5 MG NEB SCH ×2 (09:07→20:20)
[2020-06-06] MEDS: TRICOR TAB 160 MG PO SCH (09:07)
[2020-06-06] MEDS: PROVENTIL NEB TX 0.083% 2.5MG/ 3ML NEB SCH ×2 (09:07→20:20)
[2020-06-06] MEDS: THIAMINE HCL INJ IVP SCH ×2 (09:07→21:15)
[2020-06-06] MEDS: VIBRAMYCIN PO SCH ×2 (09:07→21:15)
[2020-06-06] MEDS: XANAX PO PRN ×2 (14:22→21:15)
[2020-06-06] MEDS ORDERED: SALINE 0.9% 3 ML NEB TX ONE (15:12)
[2020-06-06] MEDS: RESTORIL CAP 30 MG PO PRN (21:15)
[2020-06-07] MEDS: ASCORBIC ACID INJ MULTI-DOSE VIAL 1,500 MG in NS 100 ML IV 100 ML IV SCH ×4 (02:25→20:30)
[2020-06-07 05:53] LABS: BASOPHILS % (AUTO) 0.1 % (0.2-1.0); EOSINOPHILS # (AUTO) 0.1 x10^3/uL (0.0-0.2); EOSINOPHILS % (AUTO) 0.4 % (0.9-2.9); HEMATOCRIT 47.4 % (42.0-54.0); HEMOGLOBIN 15.8 g/dL (13.5-18.0); LYMPHOCYTES # (AUTO) 0.7 X10^3/uL (1.3-2.9); LYMPHOCYTES % (AUTO) 3.6 % (21.0-51.0); MEAN CORPUSCULAR HGB CONC 33.2 g/dL (33.0-35.0); MEAN CORPUSCULAR VOLUME 93.4 fL (80.0-100.0); MONOCYTES # (AUTO) 1.3 x10^3/uL (0.3-0.8); MONOCYTES % (AUTO) 6.9 % (0.0-13.0); PLATELET COUNT 245 X10^3/uL (150.0-450.0); RED BLOOD COUNT 5.08 X10^6/uL (4.7-6.0); RED CELL DISTRIBUTION WIDTH 13.8 % (11.6-16.5); WHITE BLOOD COUNT 19.1 X10^3/uL (3.6-10.0)
[2020-06-07] MEDS: NS 1000 ML 1,000 ML IV SCH ×2 (06:04→18:17)
[2020-06-07] MEDS: TESSALON PERLES PO SCH ×3 (06:04→21:30)
[2020-06-07] MEDS: RHINOCORT ALLERGY NASAL SPRAY ENOSTRIL SCH ×3 (06:04→21:30)
[2020-06-07 06:07] LABS: ALANINE AMINOTRANSFERASE 49 Units/L (12-78); ALBUMIN 2.1 g/dL (3.4-5.0); ALKALINE PHOSPHATASE 133 Units/L (46-116); ASPARTATE AMINO TRANSFERASE 29 Units/L (15-37); BLOOD UREA NITROGEN 23 mg/dL (7-18); CALCIUM 8.4 mg/dL (8.5-10.1); CHLORIDE 104 mmol/L (98-107); COR CA(FOR HYPOALB) 9.9 mg/dL (8.5-10.1); COR NA(FOR HYPERGLY) 141 mmol/L (136-145); CREATININE 1.16 mg/dL (0.70-1.30); SODIUM 139 mmol/L (136-145); TOTAL PROTEIN 5.5 g/dL (6.4-8.2); eGFR NON BLACK RACES > 60 (>60)
[2020-06-07] MEDS: ROBITUSSIN AC PO PRN ×3 (09:15→21:30)
[2020-06-07] MEDS: MOTRIN TAB 800 MG PO PRN ×2 (09:15→21:30)
[2020-06-07] MEDS: XANAX PO PRN ×3 (09:15→21:30)
[2020-06-07] MEDS: PROVENTIL NEB TX 0.083% 2.5MG/ 3ML NEB SCH ×2 (10:07→20:40)
[2020-06-07] MEDS: PULMICORT NEB TX 0.5 MG NEB SCH ×2 (10:07→20:40)
[2020-06-07] MEDS: COREG TAB 25 MG PO SCH ×2 (10:17→21:30)
[2020-06-07] MEDS: LIPITOR TAB 40 MG PO SCH (10:17)
[2020-06-07] MEDS: IVERMECTIN PO SCH (10:17)
[2020-06-07] MEDS: LOVENOX INJ 30 MG SYR SC SCH ×2 (10:18→21:30)
[2020-06-07] MEDS: PEPCID TAB 20 MG PO SCH ×2 (10:20→21:30)
[2020-06-07] MEDS: SYNTHROID 25 mcg TAB PO SCH (10:20)
[2020-06-07] MEDS: THIAMINE HCL INJ IVP SCH ×2 (10:21→21:30)
[2020-06-07] MEDS: VITAMIN D3 125 mcg (5,000 UNITS) PO SCH (10:21)
[2020-06-07] MEDS: ZINC SULFATE PO SCH ×2 (10:21→21:30)
[2020-06-07] MEDS: VIBRAMYCIN PO SCH ×2 (10:21→21:30)
[2020-06-07] MEDS: TRICOR TAB 160 MG PO SCH (10:21)
[2020-06-07] MEDS: SOLU-Medrol 125 MG VIAL IVP SCH ×3 (14:37→21:30)
[2020-06-07] MEDS: DEPO-TESTOSTERONE IM SCH (15:32)
[2020-06-07] MEDS: VITAMIN B-12 INJ IM SCH (15:40)
[2020-06-07] MEDS: RESTORIL CAP 30 MG PO PRN (21:30)
[2020-06-08] MEDS: ASCORBIC ACID INJ MULTI-DOSE VIAL 1,500 MG in NS 100 ML IV 100 ML IV SCH ×4 (02:40→22:30)
[2020-06-08] MEDS: RHINOCORT ALLERGY NASAL SPRAY ENOSTRIL SCH ×3 (05:45→22:30)
[2020-06-08] MEDS: SOLU-Medrol 125 MG VIAL IVP SCH ×3 (05:45→22:30)
[2020-06-08] MEDS: TESSALON PERLES PO SCH ×3 (05:45→22:30)
--- NOTE | 2020-06-08 05:47 | RAD ---
PROCEDURE: Chest X-ray 1 View .HISTORY: COVID+ .TECHNIQUE: AP view .COMPARISON: 06/03/2020.TECHNICAL QUALITY: Satisfactory .FINDINGS:Unchanged cardiomediastinal silhouette.Unchanged consolidation left mid lower lung field. Some increased consolidation right base and unchanged right midlung field.IMPRESSION:Slight increase in pneumonia on the right and unchanged on the left.Electronically signed by: Jerman Leach (Jun 08, 2020 05:46:03)
[2020-06-08] MEDS: NS 1000 ML 1,000 ML IV SCH (05:55)
[2020-06-08 06:03] LABS: BASOPHILS % (AUTO) 0.2 % (0.2-1.0); HEMATOCRIT 44.8 % (42.0-54.0); HEMOGLOBIN 15.1 g/dL (13.5-18.0); LYMPHOCYTES # (AUTO) 0.4 X10^3/uL (1.3-2.9); LYMPHOCYTES % (AUTO) 2.5 % (21.0-51.0); MEAN CORPUSCULAR HEMOGLOBIN 31.5 pg (27.0-34.0); MEAN CORPUSCULAR HGB CONC 33.6 g/dL (33.0-35.0); MEAN CORPUSCULAR VOLUME 93.6 fL (80.0-100.0); MONOCYTES # (AUTO) 0.4 x10^3/uL (0.3-0.8); MONOCYTES % (AUTO) 2.6 % (0.0-13.0); NEUTROPHILS # (AUTO) 13.5 x10^3/uL (2.2-4.8); NEUTROPHILS % (AUTO) 94.7 % (42.0-75.0); PLATELET COUNT 215 X10^3/uL (150.0-450.0); RED BLOOD COUNT 4.79 X10^6/uL (4.7-6.0); RED CELL DISTRIBUTION WIDTH 13.6 % (11.6-16.5); WHITE BLOOD COUNT 14.3 X10^3/uL (3.6-10.0)
[2020-06-08 06:21] LABS: ALANINE AMINOTRANSFERASE 39 Units/L (12-78); ALBUMIN 1.9 g/dL (3.4-5.0); ALKALINE PHOSPHATASE 119 Units/L (46-116); ASPARTATE AMINO TRANSFERASE 26 Units/L (15-37); BLOOD UREA NITROGEN 30 mg/dL (7-18); CALCIUM 8.3 mg/dL (8.5-10.1); CARBON DIOXIDE 28.1 mmol/L (21-32); CHLORIDE 103 mmol/L (98-107); COR NA(FOR HYPERGLY) 143 mmol/L (136-145); CREATININE 1.18 mg/dL (0.70-1.30); SODIUM 139 mmol/L (136-145); TOTAL PROTEIN 5.6 g/dL (6.4-8.2); eGFR NON BLACK RACES > 60 (>60)
[2020-06-08 06:52] LABS: BAND NEUTROPHILS % 3 % (0-10)
[2020-06-08 06:53] LABS: PLATELET MORPHOLOGY COMMENT NORMAL (NORMAL)
[2020-06-08] MEDS: PULMICORT NEB TX 0.5 MG NEB SCH ×2 (09:25→20:57)
[2020-06-08] MEDS: PROVENTIL NEB TX 0.083% 2.5MG/ 3ML NEB SCH ×2 (09:25→20:57)
[2020-06-08] MEDS: COREG TAB 25 MG PO SCH ×2 (10:03→22:30)
[2020-06-08] MEDS: LIPITOR TAB 40 MG PO SCH (10:03)
[2020-06-08] MEDS: PEPCID TAB 20 MG PO SCH ×2 (10:04→22:30)
[2020-06-08] MEDS: LOVENOX INJ 30 MG SYR SC SCH ×2 (10:04→22:30)
[2020-06-08] MEDS: SYNTHROID 25 mcg TAB PO SCH (10:05)
[2020-06-08] MEDS: THIAMINE HCL INJ IVP SCH ×2 (10:05→22:30)
[2020-06-08] MEDS: VIBRAMYCIN PO SCH ×2 (10:05→22:30)
[2020-06-08] MEDS: TRICOR TAB 160 MG PO SCH (10:05)
[2020-06-08] MEDS: VITAMIN D3 125 mcg (5,000 UNITS) PO SCH (10:06)
[2020-06-08] MEDS: ZINC SULFATE PO SCH ×2 (10:06→22:30)
[2020-06-08] MEDS: XANAX PO PRN ×2 (10:06→22:30)
[2020-06-08] MEDS: ROBITUSSIN AC PO PRN ×2 (10:07→22:30)
[2020-06-08] MEDS: MOTRIN TAB 800 MG PO PRN ×2 (10:36→22:30)
[2020-06-08] MEDS ORDERED: AFRIN NASAL SPRAY PRN (19:07)
[2020-06-09] MEDS: ASCORBIC ACID INJ MULTI-DOSE VIAL 1,500 MG in NS 100 ML IV 100 ML IV SCH ×4 (04:00→21:06)
[2020-06-09] MEDS: NS 1000 ML 1,000 ML IV SCH ×2 (04:00→19:00)
[2020-06-09] MEDS: RHINOCORT ALLERGY NASAL SPRAY ENOSTRIL SCH ×3 (06:23→21:08)
[2020-06-09] MEDS: TESSALON PERLES PO SCH ×3 (06:23→21:07)
[2020-06-09] MEDS: SOLU-Medrol 125 MG VIAL IVP SCH ×3 (06:24→21:08)
[2020-06-09] MEDS ORDERED: MILK OF MAGNESIA PO PRN (06:27)
[2020-06-09] MEDS ORDERED: COLACE CAP 100 MG PO PRN (06:27)
[2020-06-09 06:52] LABS: BASOPHILS % (AUTO) 0.2 % (0.2-1.0); HEMATOCRIT 45.7 % (42.0-54.0); HEMOGLOBIN 15.3 g/dL (13.5-18.0); LYMPHOCYTES # (AUTO) 0.4 X10^3/uL (1.3-2.9); LYMPHOCYTES % (AUTO) 2.1 % (21.0-51.0); MEAN CORPUSCULAR HEMOGLOBIN 31.1 pg (27.0-34.0); MEAN CORPUSCULAR HGB CONC 33.5 g/dL (33.0-35.0); MEAN CORPUSCULAR VOLUME 92.7 fL (80.0-100.0); MEAN PLATELET VOLUME 8.1 fL (7.4-11.0); MONOCYTES % (AUTO) 4.9 % (0.0-13.0); NEUTROPHILS # (AUTO) 19.1 x10^3/uL (2.2-4.8); NEUTROPHILS % (AUTO) 92.8 % (42.0-75.0); PLATELET COUNT 245 X10^3/uL (150.0-450.0); RED BLOOD COUNT 4.93 X10^6/uL (4.7-6.0); RED CELL DISTRIBUTION WIDTH 13.5 % (11.6-16.5); WHITE BLOOD COUNT 20.6 X10^3/uL (3.6-10.0)
[2020-06-09 07:06] LABS: ALANINE AMINOTRANSFERASE 42 Units/L (12-78); ALBUMIN 2.1 g/dL (3.4-5.0); ALKALINE PHOSPHATASE 167 Units/L (46-116); ASPARTATE AMINO TRANSFERASE 24 Units/L (15-37); BLOOD UREA NITROGEN 32 mg/dL (7-18); CALCIUM 8.7 mg/dL (8.5-10.1); CHLORIDE 104 mmol/L (98-107); COR CA(FOR HYPOALB) 10.2 mg/dL (8.5-10.1); COR NA(FOR HYPERGLY) 144 mmol/L (136-145); CREATININE 1.28 mg/dL (0.70-1.30); SODIUM 140 mmol/L (136-145); TOTAL PROTEIN 6.1 g/dL (6.4-8.2); eGFR NON BLACK RACES > 60 (>60)
[2020-06-09 07:54] LABS: BAND NEUTROPHILS % 1 % (0-10); PLATELET MORPHOLOGY COMMENT NORMAL (NORMAL)
[2020-06-09] MEDS: IVERMECTIN PO SCH (08:53)
[2020-06-09] MEDS: COREG TAB 25 MG PO SCH ×2 (08:53→21:10)
[2020-06-09] MEDS: LIPITOR TAB 40 MG PO SCH (08:53)
[2020-06-09] MEDS: LOVENOX INJ 30 MG SYR SC SCH ×2 (08:54→21:09)
[2020-06-09] MEDS: SYNTHROID 25 mcg TAB PO SCH (08:55)
[2020-06-09] MEDS: PEPCID TAB 20 MG PO SCH ×2 (08:55→21:09)
[2020-06-09] MEDS: THIAMINE HCL INJ IVP SCH ×2 (08:55→21:09)
[2020-06-09] MEDS: VIBRAMYCIN PO SCH ×2 (08:56→21:08)
[2020-06-09] MEDS: VITAMIN D3 125 mcg (5,000 UNITS) PO SCH (08:56)
[2020-06-09] MEDS: TRICOR TAB 160 MG PO SCH (08:56)
[2020-06-09] MEDS: ZINC SULFATE PO SCH ×2 (08:56→21:07)
[2020-06-09] MEDS: ROBITUSSIN AC PO PRN (09:15)
[2020-06-09] MEDS: PROVENTIL NEB TX 0.083% 2.5MG/ 3ML NEB SCH ×2 (09:44→20:25)
[2020-06-09] MEDS: PULMICORT NEB TX 0.5 MG NEB SCH ×2 (09:44→20:25)
[2020-06-09] MEDS: XANAX PO PRN ×2 (13:30→20:11)
[2020-06-09] MEDS ORDERED: ATIVAN INJ 2 MG VIAL ONE (18:13)
[2020-06-09] MEDS ORDERED: ATIVAN INJ 2 MG VIAL IVP ONE (18:15)
[2020-06-09] MEDS: VERSED 50 MG in NS 50 ML IV 40 ML IV PRN (18:50)
[2020-06-10] MEDS: XANAX PO PRN ×2 (02:00→08:48)
[2020-06-10] MEDS: ASCORBIC ACID INJ MULTI-DOSE VIAL 1,500 MG in NS 100 ML IV 100 ML IV SCH ×4 (03:00→22:32)
[2020-06-10] MEDS: NS 1000 ML 1,000 ML IV SCH (04:47)
[2020-06-10] MEDS: RHINOCORT ALLERGY NASAL SPRAY ENOSTRIL SCH ×2 (05:03→13:59)
[2020-06-10] MEDS: TESSALON PERLES PO SCH ×2 (06:57→14:55)
[2020-06-10] MEDS: SOLU-Medrol 125 MG VIAL IVP SCH (06:57)
[2020-06-10 07:42] LABS: ALANINE AMINOTRANSFERASE 28 Units/L (12-78); ALBUMIN 1.9 g/dL (3.4-5.0); ALKALINE PHOSPHATASE 273 Units/L (46-116); ASPARTATE AMINO TRANSFERASE 35 Units/L (15-37); BLOOD UREA NITROGEN 33 mg/dL (7-18); CALCIUM 8.4 mg/dL (8.5-10.1); CARBON DIOXIDE 27.6 mmol/L (21-32); CHLORIDE 106 mmol/L (98-107); COR CA(FOR HYPOALB) 10.1 mg/dL (8.5-10.1); COR NA(FOR HYPERGLY) 143 mmol/L (136-145); CREATININE 1.06 mg/dL (0.70-1.30); SODIUM 140 mmol/L (136-145); TOTAL PROTEIN 5.7 g/dL (6.4-8.2); eGFR NON BLACK RACES > 60 (>60)
[2020-06-10 07:47] LABS: BASOPHILS % (AUTO) 0.1 % (0.2-1.0); HEMATOCRIT 48.4 % (42.0-54.0); LYMPHOCYTES # (AUTO) 0.4 X10^3/uL (1.3-2.9); MEAN CORPUSCULAR HEMOGLOBIN 30.9 pg (27.0-34.0); MEAN CORPUSCULAR HGB CONC 33.1 g/dL (33.0-35.0); MEAN CORPUSCULAR VOLUME 93.3 fL (80.0-100.0); MEAN PLATELET VOLUME 8.3 fL (7.4-11.0); MONOCYTES # (AUTO) 1.2 x10^3/uL (0.3-0.8); MONOCYTES % (AUTO) 6.7 % (0.0-13.0); NEUTROPHILS # (AUTO) 16.3 x10^3/uL (2.2-4.8); NEUTROPHILS % (AUTO) 91.2 % (42.0-75.0); PLATELET COUNT 214 X10^3/uL (150.0-450.0); RED BLOOD COUNT 5.18 X10^6/uL (4.7-6.0); RED CELL DISTRIBUTION WIDTH 13.4 % (11.6-16.5); WHITE BLOOD COUNT 17.9 X10^3/uL (3.6-10.0)
[2020-06-10 08:24] LABS: PLATELET MORPHOLOGY COMMENT NORMAL (NORMAL)
[2020-06-10] MEDS: LOVENOX INJ 30 MG SYR SC SCH (08:30)
[2020-06-10] MEDS: VIBRAMYCIN PO SCH (08:48)
[2020-06-10] MEDS: LIPITOR TAB 40 MG PO SCH (08:48)
[2020-06-10] MEDS: PEPCID TAB 20 MG PO SCH (08:48)
[2020-06-10] MEDS: SYNTHROID 25 mcg TAB PO SCH (08:48)
[2020-06-10] MEDS: COREG TAB 25 MG PO SCH ×2 (08:48→22:32)
[2020-06-10] MEDS: VITAMIN D3 125 mcg (5,000 UNITS) PO SCH (08:48)
[2020-06-10] MEDS: THIAMINE HCL INJ IVP SCH ×2 (08:48→22:00)
[2020-06-10] MEDS: ZINC SULFATE PO SCH ×2 (08:48→22:00)
[2020-06-10] MEDS ORDERED: SOLU-Medrol 40 MG VIAL IVP SCH (09:00)
[2020-06-10] MEDS ORDERED: ATIVAN INJ 2 MG VIAL IVP PRN (10:06)
[2020-06-10] MEDS: PROVENTIL NEB TX 0.083% 2.5MG/ 3ML NEB SCH ×3 (11:18→21:00)
[2020-06-10] MEDS: PULMICORT NEB TX 0.5 MG NEB SCH ×2 (11:18→21:00)
[2020-06-10] MEDS: DECADRON INJ IVP SCH (12:15)
[2020-06-10] MEDS ORDERED: TESSALON PERLES PO PRN (14:49)
[2020-06-10] MEDS ORDERED: DIPRIVAN PREMIX 1 GRAM IV 1,000 MG/100 ML VIAL ONE (17:59)
[2020-06-10] MEDS ORDERED: DIPRIVAN VIAL 20 ML ONE (18:00)
[2020-06-10] MEDS ORDERED: QUELICIN (OR ANECTINE) ONE ×2 (18:01→18:44)
[2020-06-10] MEDS ORDERED: VERSED ONE ×2 (18:32→18:39)
[2020-06-10] MEDS ORDERED: NS 100 ML IV 100 ML IV ONE ×3 (18:33→19:32)
[2020-06-10] MEDS ORDERED: NORCURON INJ 10 MG VIAL ONE ×2 (18:43→19:33)
[2020-06-10] MEDS: NORCURON INJ 10 MG VIAL 50 MG in NS 50 ML IV 50 ML IV PRN (18:53)
--- NOTE | 2020-06-10 18:56 | RAD ---
CHEST, 1 VIEWHISTORY: ET TUBE PLACEStudy: Single view of the chest.Comparison:06/08/2020Findings:Cardiomegaly. Bilateral interstitial prominence diffuse alveolar airspace opacities..Endotracheal tube terminating 5.5 cm above the hayden.IMPRESSION:1. Worsening of bilateral interstitial airspace opacities.2. Endotracheal tube as above.Electronically signed by: AURA ELY (Jun 10, 2020 18:54:01)
[2020-06-10] MEDS ORDERED: XANAX ONE (19:12)
[2020-06-10] MEDS ORDERED: CARDIZEM INJ 125 MG VIAL ONE (19:33)
[2020-06-10] MEDS: LOVENOX INJ 40 MG SYR SC SCH (22:30)
[2020-06-11] MEDS: TESSALON PERLES PO SCH ×3 (01:05→13:30)
[2020-06-11] MEDS: RHINOCORT ALLERGY NASAL SPRAY ENOSTRIL SCH ×4 (01:06→21:43)
[2020-06-11] MEDS: PEPCID TAB 20 MG PO SCH ×2 (01:21→08:50)
[2020-06-11] MEDS: VIBRAMYCIN PO SCH ×2 (01:22→08:51)
[2020-06-11] MEDS ORDERED: CARDIZEM INJ 125 MG VIAL 125 MG in NS 100 ML IV 100 ML IV PRN (03:18)
[2020-06-11] MEDS ORDERED: NORCURON INJ 10 MG VIAL IVP ONE (03:18)
[2020-06-11] MEDS: ASCORBIC ACID INJ MULTI-DOSE VIAL 1,500 MG in NS 100 ML IV 100 ML IV SCH ×4 (04:15→21:41)
[2020-06-11] MEDS ORDERED: NORCURON INJ 10 MG VIAL ONE ×2 (04:42→16:53)
[2020-06-11] MEDS ORDERED: NS 50 ML IV 50 ML IV ONE (04:42)
[2020-06-11] MEDS: NORCURON INJ 10 MG VIAL 50 MG in NS 50 ML IV 50 ML IV PRN ×4 (05:15→20:00)
[2020-06-11 05:51] LABS: ABG BASE EXCESS 1.6 mmol/L (-2.0-2.0)
[2020-06-11 05:53] LABS: ABG HCO3 34.6 mmol/L (22-26)
[2020-06-11 05:54] LABS: ABG ALLEN TEST POS
[2020-06-11] MEDS: NS 1000 ML 1,000 ML IV SCH ×3 (05:55→23:38)
[2020-06-11 06:11] LABS: BASOPHILS # (AUTO) 0.1 X10^3/uL (0.0-0.1); BASOPHILS % (AUTO) 0.2 % (0.2-1.0); LYMPHOCYTES # (AUTO) 0.4 X10^3/uL (1.3-2.9)
[2020-06-11 06:20] LABS: HEMOGLOBIN 16.8 g/dL (13.5-18.0); MEAN CORPUSCULAR HEMOGLOBIN 31.5 pg (27.0-34.0); MEAN CORPUSCULAR HGB CONC 32.9 g/dL (33.0-35.0); MEAN CORPUSCULAR VOLUME 95.8 fL (80.0-100.0); MEAN PLATELET VOLUME 7.6 fL (7.4-11.0); MONOCYTES # (AUTO) 2.9 x10^3/uL (0.3-0.8); MONOCYTES % (AUTO) 7.5 % (0.0-13.0); NEUTROPHILS # (AUTO) 35.5 x10^3/uL (2.2-4.8); NEUTROPHILS % (AUTO) 91.3 % (42.0-75.0); PLATELET COUNT 234 X10^3/uL (150.0-450.0); RED BLOOD COUNT 5.32 X10^6/uL (4.7-6.0); RED CELL DISTRIBUTION WIDTH 13.7 % (11.6-16.5)
--- NOTE | 2020-06-11 07:32 | RAD ---
Chest AP portableIndication: COVID-19.Comparison June 10, 2020FINDINGSETT tip is at the lower border the clavicles. Monitor leads obscure significant detail. Patchy bilateral pulmonary opacities are similar to slightly improved from the prior. No large pneumothorax seen.IMPRESSIONBilateral pulmonary opacities are similar to perhaps slightly improved on the left compared to the prior. ET tube is unchanged.Electronically signed by: LAMIN GONSALES (Jun 11, 2020 07:30:20)
[2020-06-11 07:37] LABS: BAND NEUTROPHILS % 7 % (0-10); PLATELET MORPHOLOGY COMMENT NORMAL (NORMAL); WHITE BLOOD COUNT 38.9 X10^3/uL (3.6-10.0)
[2020-06-11 07:44] LABS: ALBUMIN 1.9 g/dL (3.4-5.0); CALCIUM 7.9 mg/dL (8.5-10.1); CARBON DIOXIDE 32.3 mmol/L (21-32); COR CA(FOR HYPOALB) 9.6 mg/dL (8.5-10.1); CREATININE 3.11 mg/dL (0.70-1.30); MAGNESIUM 2.7 mg/dL (1.7-2.9); TOTAL PROTEIN 5.7 g/dL (6.4-8.2)
[2020-06-11] MEDS ORDERED: NS 1000 ML 1,000 ML IV ONE ×2 (07:59→09:55)
[2020-06-11] MEDS ORDERED: NS 1/2 1000 ML IV 1,000 ML with SODIUM BICARBONATE 8.4% INJ ADULT 100 ML IV SCH ×2 (08:00)
[2020-06-11] MEDS ORDERED: SODIUM BICARBONATE 8.4% INJ ADULT IVP ONE (08:23)
[2020-06-11] MEDS ORDERED: SODIUM BICARBONATE 8.4% INJ ADULT ONE (08:26)
[2020-06-11] MEDS: PROVENTIL NEB TX 0.083% 2.5MG/ 3ML NEB SCH ×2 (08:29→20:43)
[2020-06-11] MEDS: PULMICORT NEB TX 0.5 MG NEB SCH ×2 (08:29→20:43)
[2020-06-11] MEDS: LIPITOR TAB 40 MG PO SCH (08:50)
[2020-06-11] MEDS: COREG TAB 25 MG PO SCH ×2 (08:50→21:41)
[2020-06-11] MEDS: ZINC SULFATE PO SCH ×2 (08:51→21:43)
[2020-06-11] MEDS: THIAMINE HCL INJ IVP SCH ×2 (08:51→21:43)
[2020-06-11] MEDS: SYNTHROID 25 mcg TAB PO SCH (08:51)
[2020-06-11] MEDS ORDERED: AFRIN NASAL SPRAY PRN (09:00)
[2020-06-11 09:44] LABS: CALCIUM 7.3 mg/dL (8.5-10.1); CARBON DIOXIDE 33.2 mmol/L (21-32); CREATININE 3.04 mg/dL (0.70-1.30)
[2020-06-11] MEDS: DECADRON INJ IVP SCH (10:50)
[2020-06-11] MEDS: LOVENOX INJ 40 MG SYR SC SCH ×2 (10:50→21:42)
[2020-06-11] MEDS: VITAMIN D3 125 mcg (5,000 UNITS) PO SCH (11:01)
[2020-06-11 11:35] LABS: ABG BASE EXCESS 5.1 mmol/L (-2.0-2.0)
[2020-06-11 11:36] LABS: ABG ALLEN TEST POS; ABG HCO3 33.2 mmol/L (22-26)
[2020-06-11] MEDS ORDERED: NS 500 ML IV 500 ML IV ONE (12:10)
--- NOTE | 2020-06-11 13:05 | DR.UPDATE ---
H&P Update History and Physical Update: History and Physical reviewed and patient examined. Changes noted: NO Yes with the following:will place art line for bp/frequent sampling H&P Reviewed: Yes Patient was examined?: Yes Procedures (ALL) - Arterial Line Consent obtained: verbal consent Time out performed: Yes Size(gauge): 20 Technique used: guided wire technique (sterile prep) Post-procedure: dry sterile dressing placed Patient tolerated procedure: Yes Site: right, radial
[2020-06-11] MEDS: VIBRAMYCIN 100 MG in D5W 250 ML IV 250 ML IV SCH (14:00)
[2020-06-11 14:23] LABS: ABG BASE EXCESS 5.8 mmol/L (-2.0-2.0)
[2020-06-11 14:24] LABS: ABG HCO3 33.4 mmol/L (22-26)
[2020-06-11 14:47] LABS: CALCIUM 7.5 mg/dL (8.5-10.1); CARBON DIOXIDE 33.1 mmol/L (21-32); CREATININE 2.75 mg/dL (0.70-1.30)
--- NOTE | 2020-06-11 16:59 | RAD ---
HISTORYNGT PLACEMENTSTUDYCHEST, 1 VIEW two viewsCOMPARISONChest x-ray dated 06/11/2010 at 6:22 a.m..FINDINGSThe trachea is midline. The endotracheal tube is at the level of the clavicles. There are multiple wires in the right supraclavicular region. Normal heart size. There has not been significant change in the multiple alveolar radiopacities with confluent zones in the left lower lobe and midlung zone. No nasogastric tube is seen in the chest. Images through the upper abdomen demonstrate air containing mild distended stomach, no nasogastric tube is seen.IMPRESSIONNonvisualization of the nasogastric tube in the chest or in the upper abdomenAir-containing mild distended stomach.Stable diffuse alveolar radiopacities throughout the lungs with confluent zones.Electronically signed by: Cyndi Yancey (Jun 11, 2020 16:57:28)
--- NOTE | 2020-06-11 17:25 | RAD ---
CHEST, 1 VIEWHistory: 2ND ATTEMPT NGT PLACEMENT BY NURSEComparison: Radiographs from earlier todayFindings/Impression: Partially visualized NG tube terminates near the level of the clavicles. ET tube remains well positioned. Remainder of the exam is otherwise unchanged since earlier today.Electronically signed by: ZOIE GALICIA (Jun 11, 2020 17:23:41)
[2020-06-11] MEDS: VERSED 50 MG in NS 50 ML IV 40 ML IV PRN (20:12)
[2020-06-11] MEDS: PEPCID 20 MG IV PREMIX IV SCH (21:42)
[2020-06-12] MEDS: NS 1000 ML 1,000 ML IV SCH ×3 (00:20→10:51)
[2020-06-12] MEDS: VIBRAMYCIN 100 MG in D5W 250 ML IV 250 ML IV SCH ×2 (02:57→12:20)
[2020-06-12] MEDS ORDERED: TYLENOL 325 MG TAB PO ONE (03:06)
[2020-06-12] MEDS: TYLENOL 325 MG TAB PO PRN ×4 (03:15→18:17)
--- NOTE | 2020-06-12 03:22 | RAD ---
HISTORYOG TUBE PLACEMENT HTN, ORTHOSTUDYKUBCOMPARISONNoneFINDINGSEnteric tube terminates in the mid to distal gastric body. Patchy bilateral pulmonary opacities/infiltrates. Mild multilevel spondylosis.IMPRESSIONEnteric tube termina kimberli in the expected location of the mid to distal gastric body.Electronically signed by: Marlena Porter (Jun 12, 2020 03:20:34)
--- NOTE | 2020-06-12 03:50 | RAD ---
PROCEDURE: Chest X-ray 1 View .HISTORY: Ventilator dependence and COVID infection.TECHNIQUE: AP view .COMPARISON: 06/11/2020.TECHNICAL QUALITY: Satisfactory .FINDINGS:Endotracheal tube tip 5.5 cm above the hayden. NG tube tip off the bottom of the exam either in the stomach or duodenum.Unremarkable cardiomediastinal silhouette.Normal central vascularity.Increase consolidation throughout the right lung field compared to previous study study and unchanged on the left with no pleural fluid or pneumothorax.IMPRESSION:Increasing pneumonia as described above.Electronically signed by: Jerman Leach (Jun 12, 2020 03:48:41)
[2020-06-12] MEDS: ASCORBIC ACID INJ MULTI-DOSE VIAL 1,500 MG in NS 100 ML IV 100 ML IV SCH ×5 (04:45→16:31)
[2020-06-12 05:36] LABS: BASOPHILS # (AUTO) 0.1 X10^3/uL (0.0-0.1); BASOPHILS % (AUTO) 0.4 % (0.2-1.0); HEMATOCRIT 45.3 % (42.0-54.0); LYMPHOCYTES # (AUTO) 0.5 X10^3/uL (1.3-2.9); LYMPHOCYTES % (AUTO) 2.1 % (21.0-51.0); MEAN CORPUSCULAR HEMOGLOBIN 30.7 pg (27.0-34.0); MEAN CORPUSCULAR HGB CONC 31.9 g/dL (33.0-35.0); MEAN CORPUSCULAR VOLUME 96.1 fL (80.0-100.0); MEAN PLATELET VOLUME 8.8 fL (7.4-11.0); MONOCYTES % (AUTO) 4.5 % (0.0-13.0); NEUTROPHILS # (AUTO) 21.8 x10^3/uL (2.2-4.8); PLATELET COUNT 106 X10^3/uL (150.0-450.0); RED BLOOD COUNT 4.71 X10^6/uL (4.7-6.0); RED CELL DISTRIBUTION WIDTH 13.7 % (11.6-16.5)
[2020-06-12 05:39] LABS: ALBUMIN 1.7 g/dL (3.4-5.0); CALCIUM 7.7 mg/dL (8.5-10.1); COR CA(FOR HYPOALB) 9.5 mg/dL (8.5-10.1); CREATININE 1.98 mg/dL (0.70-1.30); TOTAL PROTEIN 5.1 g/dL (6.4-8.2)
[2020-06-12 06:04] LABS: ABG BASE EXCESS 8.8 mmol/L (-2.0-2.0)
[2020-06-12 06:07] LABS: ABG HCO3 35.7 mmol/L (22-26)
[2020-06-12 06:22] LABS: WHITE BLOOD COUNT 23.4 X10^3/uL (3.6-10.0)
[2020-06-12 06:23] LABS: HEMOGLOBIN 14.5 g/dL (13.5-18.0)
[2020-06-12 06:24] LABS: BAND NEUTROPHILS % 7 % (0-10); PLATELET MORPHOLOGY COMMENT NORMAL (NORMAL)
[2020-06-12] MEDS: RHINOCORT ALLERGY NASAL SPRAY ENOSTRIL SCH ×2 (07:22→16:32)
[2020-06-12] MEDS: NORCURON INJ 10 MG VIAL 50 MG in NS 50 ML IV 50 ML IV PRN ×3 (07:34→18:11)
[2020-06-12] MEDS ORDERED: KAYEXALATE SUSP RECTAL NR (08:00)
[2020-06-12] MEDS ORDERED: NS 1/2 1000 ML IV 1,000 ML IV SCH (08:00)
[2020-06-12] MEDS ORDERED: VERSED ONE (08:33)
[2020-06-12] MEDS ORDERED: NS 100 ML IV 100 ML IV ONE (08:34)
[2020-06-12] MEDS: LOPRESSOR INJ 5 MG AMP IVP PRN ×3 (09:20→22:09)
[2020-06-12] MEDS ORDERED: LOPRESSOR INJ 5 MG AMP ONE (09:22)
[2020-06-12] MEDS: PROVENTIL NEB TX 0.083% 2.5MG/ 3ML NEB SCH ×2 (09:25→21:42)
[2020-06-12] MEDS: PULMICORT NEB TX 0.5 MG NEB SCH ×2 (09:25→21:42)
[2020-06-12] MEDS: THIAMINE HCL INJ IVP SCH (09:55)
[2020-06-12] MEDS: PEPCID 20 MG IV PREMIX IV SCH (09:59)
[2020-06-12] MEDS: DECADRON INJ IVP SCH (10:01)
[2020-06-12] MEDS: LOVENOX INJ 40 MG SYR SC SCH (10:20)
[2020-06-12] MEDS ORDERED: NS 1/2 1000 ML IV 1,000 ML IV ONE (10:33)
[2020-06-12] MEDS: SYNTHROID 25 mcg TAB PO SCH (10:55)
[2020-06-12] MEDS: LIPITOR TAB 40 MG PO SCH (10:55)
[2020-06-12] MEDS: VITAMIN D3 125 mcg (5,000 UNITS) PO SCH (10:55)
[2020-06-12] MEDS: COREG TAB 25 MG PO SCH (10:55)
[2020-06-12] MEDS: ZINC SULFATE PO SCH (10:56)
[2020-06-12 21:21] LABS: BILIRUBIN,URINE NEGATIVE (NEGATIVE); BLOOD/HEMOGLOBIN,URINE 2+ (NEGATIVE); GLUCOSE, URINE 4+ (NEGATIVE); KETONES,URINE NEGATIVE (NEGATIVE); LEUKOCYTE ESTERASE ,URINE NEGATIVE (NEGATIVE); NITRITES,URINE NEGATIVE (NEGATIVE); PROTEIN,URINE 1+ (NEGATIVE); UROBILINOGEN,URINE NORMAL (NORMAL)
[2020-06-12 21:30] LABS: APPEARANCE,URINE CLEAR (CLEAR); COLOR,URINE YELLOW (YELLOW)
[2020-06-12 21:31] LABS: BACTERIA,URINE TRACE /HPF (NEGATIVE); MUCUS,URINE FEW /HPF (NEGATIVE); SQUAMOUS EPITHELIAL CELL,UR RARE /HPF (NEGATIVE); YEAST,URINE FEW /HPF (NEGATIVE)
[2020-06-12] MEDS: OFIRMEV IV 1000 MG VIAL 1,000 MG/100 ML VIAL IV PRN (22:10)
[2020-06-12 23:33] LABS: ABG BASE EXCESS 7.5 mmol/L (-2.0-2.0)
[2020-06-12 23:35] LABS: ABG HCO3 37.7 mmol/L (22-26)
[2020-06-13] MEDS: COREG TAB 25 MG PO SCH ×3 (01:00→21:26)
[2020-06-13] MEDS: NS 1000 ML 1,000 ML IV SCH (01:12)
[2020-06-13] MEDS: RHINOCORT ALLERGY NASAL SPRAY ENOSTRIL SCH ×4 (01:12→21:25)
[2020-06-13] MEDS: ZINC SULFATE PO SCH ×3 (01:12→21:24)
[2020-06-13] MEDS: LEVAQUIN PREMIX IV 750 MG 750 MG/150 ML BAG IV SCH (01:12)
[2020-06-13] MEDS: NORCURON INJ 10 MG VIAL 50 MG in NS 50 ML IV 50 ML IV PRN ×4 (01:13→23:45)
[2020-06-13 06:38] LABS: BASOPHILS # (AUTO) 0.1 X10^3/uL (0.0-0.1); BASOPHILS % (AUTO) 0.6 % (0.2-1.0); HEMATOCRIT 44.2 % (42.0-54.0); HEMOGLOBIN 14.2 g/dL (13.5-18.0); LYMPHOCYTES # (AUTO) 0.4 X10^3/uL (1.3-2.9); LYMPHOCYTES % (AUTO) 1.7 % (21.0-51.0); MEAN CORPUSCULAR HEMOGLOBIN 30.7 pg (27.0-34.0); MEAN CORPUSCULAR HGB CONC 32.2 g/dL (33.0-35.0); MEAN CORPUSCULAR VOLUME 95.3 fL (80.0-100.0); MEAN PLATELET VOLUME 8.8 fL (7.4-11.0); MONOCYTES # (AUTO) 1.2 x10^3/uL (0.3-0.8); MONOCYTES % (AUTO) 4.8 % (0.0-13.0); NEUTROPHILS # (AUTO) 22.8 x10^3/uL (2.2-4.8); NEUTROPHILS % (AUTO) 92.9 % (42.0-75.0); PLATELET COUNT 93 X10^3/uL (150.0-450.0); RED BLOOD COUNT 4.63 X10^6/uL (4.7-6.0); RED CELL DISTRIBUTION WIDTH 13.8 % (11.6-16.5); WHITE BLOOD COUNT 24.5 X10^3/uL (3.6-10.0)
[2020-06-13 06:44] LABS: ABG BASE EXCESS 10.2 mmol/L (-2.0-2.0)
[2020-06-13 06:45] LABS: ABG HCO3 39.2 mmol/L (22-26)
[2020-06-13 06:53] LABS: ALANINE AMINOTRANSFERASE 167 Units/L (12-78); ALBUMIN 1.6 g/dL (3.4-5.0); ALKALINE PHOSPHATASE 117 Units/L (46-116); ASPARTATE AMINO TRANSFERASE 71 Units/L (15-37); BLOOD UREA NITROGEN 43 mg/dL (7-18); CALCIUM 7.6 mg/dL (8.5-10.1); CARBON DIOXIDE 35.9 mmol/L (21-32); COR CA(FOR HYPOALB) 9.5 mg/dL (8.5-10.1); COR NA(FOR HYPERGLY) 158 mmol/L (136-145); CREATININE 1.48 mg/dL (0.70-1.30); TOTAL PROTEIN 4.9 g/dL (6.4-8.2); eGFR NON BLACK RACES 52 (>60)
[2020-06-13 06:57] LABS: CHLORIDE 116 mmol/L (98-107); SODIUM 154 mmol/L (136-145)
--- NOTE | 2020-06-13 07:36 | RAD ---
History: COVID-19 19 pneumonia, respiratory failureStudy: Single view chestComparison: YesterdayFINDINGS/IMPRESSION:No significant interval change in appearance of lungs and support lines with persistent bilateral multifocal lung infiltrates. No pneumothorax identified. Heart size is normal.Electronically signed by: ANN-MARIE PIZANO (Jun 13, 2020 07:34:57)
[2020-06-13 08:08] LABS: BAND NEUTROPHILS % 5 % (0-10); PLATELET MORPHOLOGY COMMENT NORMAL (NORMAL)
[2020-06-13] MEDS: LACRI-LUBE S.O.P. AFFEYE SCH ×3 (08:45→21:25)
[2020-06-13] MEDS: ASCORBIC ACID INJ MULTI-DOSE VIAL 1,500 MG in NS 100 ML IV 100 ML IV SCH ×4 (08:45→21:24)
[2020-06-13] MEDS: DECADRON INJ IVP SCH (08:48)
[2020-06-13] MEDS: THIAMINE HCL INJ IVP SCH ×3 (08:49→21:25)
[2020-06-13] MEDS: PROVENTIL NEB TX 0.083% 2.5MG/ 3ML NEB SCH ×2 (09:10→21:39)
[2020-06-13] MEDS: PULMICORT NEB TX 0.5 MG NEB SCH ×2 (09:10→21:39)
[2020-06-13] MEDS: PEPCID 20 MG IV PREMIX IV SCH ×3 (10:00→21:25)
[2020-06-13] MEDS: VITAMIN D3 125 mcg (5,000 UNITS) PO SCH (12:34)
[2020-06-13] MEDS: SYNTHROID 25 mcg TAB PO SCH (12:34)
[2020-06-13] MEDS: LIPITOR TAB 40 MG PO SCH (12:38)
[2020-06-13] MEDS: ELIQUIS NG SCH ×2 (12:38→21:26)
[2020-06-13] MEDS: ATIVAN 20 MG/10 ML VIAL 20 MG in NS 100 ML IV 90 ML IV PRN ×2 (13:15→23:45)
[2020-06-13] MEDS ORDERED: NS 1/2 1000 ML IV 1,000 ML IV ONE (14:35)
[2020-06-13] MEDS: NS 1/2 1000 ML IV 1,000 ML IV SCH (14:35)
[2020-06-13] MEDS: LOPRESSOR INJ 5 MG AMP IVP PRN (17:35)
[2020-06-13] MEDS: OFIRMEV IV 1000 MG VIAL 1,000 MG/100 ML VIAL IV PRN (23:00)
[2020-06-14] MEDS ORDERED: NS 1/2 1000 ML IV 1,000 ML IV ONE ×6 (00:29→18:59)
[2020-06-14] MEDS: NS 1/2 1000 ML IV 1,000 ML IV SCH ×4 (01:30→20:32)
[2020-06-14] MEDS: ASCORBIC ACID INJ MULTI-DOSE VIAL 1,500 MG in NS 100 ML IV 100 ML IV SCH ×3 (02:29→15:00)
[2020-06-14] MEDS: RHINOCORT ALLERGY NASAL SPRAY ENOSTRIL SCH ×2 (05:18→15:53)
[2020-06-14] MEDS: OFIRMEV IV 1000 MG VIAL 1,000 MG/100 ML VIAL IV PRN ×3 (06:22→23:47)
[2020-06-14 06:33] LABS: BASOPHILS # (AUTO) 0.2 X10^3/uL (0.0-0.1); BASOPHILS % (AUTO) 0.8 % (0.2-1.0); HEMATOCRIT 42.6 % (42.0-54.0); HEMOGLOBIN 13.4 g/dL (13.5-18.0); LYMPHOCYTES # (AUTO) 0.6 X10^3/uL (1.3-2.9); LYMPHOCYTES % (AUTO) 3.2 % (21.0-51.0); MEAN CORPUSCULAR HEMOGLOBIN 30.1 pg (27.0-34.0); MEAN CORPUSCULAR HGB CONC 31.4 g/dL (33.0-35.0); MEAN CORPUSCULAR VOLUME 95.8 fL (80.0-100.0); MEAN PLATELET VOLUME 9.2 fL (7.4-11.0); MONOCYTES # (AUTO) 1.2 x10^3/uL (0.3-0.8); MONOCYTES % (AUTO) 6.2 % (0.0-13.0); NEUTROPHILS # (AUTO) 17.7 x10^3/uL (2.2-4.8); NEUTROPHILS % (AUTO) 89.8 % (42.0-75.0); PLATELET COUNT 86 X10^3/uL (150.0-450.0); RED BLOOD COUNT 4.45 X10^6/uL (4.7-6.0); RED CELL DISTRIBUTION WIDTH 13.5 % (11.6-16.5); WHITE BLOOD COUNT 19.7 X10^3/uL (3.6-10.0)
[2020-06-14 06:37] LABS: ABG BASE EXCESS 11.9 mmol/L (-2.0-2.0)
[2020-06-14 06:38] LABS: ABG HCO3 41.2 mmol/L (22-26)
[2020-06-14 06:54] LABS: ALBUMIN 1.5 g/dL (3.4-5.0); CALCIUM 7.5 mg/dL (8.5-10.1); CARBON DIOXIDE 38.1 mmol/L (21-32); COR CA(FOR HYPOALB) 9.5 mg/dL (8.5-10.1); CREATININE 1.62 mg/dL (0.70-1.30); TOTAL PROTEIN 4.7 g/dL (6.4-8.2)
[2020-06-14] MEDS ORDERED: KAYEXALATE SUSP PO NR (08:00)
[2020-06-14] MEDS: LACRI-LUBE S.O.P. AFFEYE SCH (08:40)
[2020-06-14] MEDS: THIAMINE HCL INJ IVP SCH (09:00)
[2020-06-14] MEDS: PROVENTIL NEB TX 0.083% 2.5MG/ 3ML NEB SCH ×2 (09:00→20:20)
[2020-06-14] MEDS: PULMICORT NEB TX 0.5 MG NEB SCH ×2 (09:00→20:20)
[2020-06-14] MEDS: DECADRON INJ IVP SCH (09:00)
[2020-06-14] MEDS: PEPCID 20 MG IV PREMIX IV SCH (09:30)
[2020-06-14] MEDS: ATIVAN 20 MG/10 ML VIAL 20 MG in NS 100 ML IV 90 ML IV PRN ×2 (10:15→22:09)
[2020-06-14] MEDS: VITAMIN B-12 INJ IM SCH (12:00)
[2020-06-14] MEDS: LIPITOR TAB 40 MG PO SCH (12:00)
[2020-06-14] MEDS: ELIQUIS NG SCH (12:00)
[2020-06-14] MEDS: ZINC SULFATE PO SCH (12:00)
[2020-06-14] MEDS: VITAMIN D3 125 mcg (5,000 UNITS) PO SCH (12:00)
[2020-06-14] MEDS: COREG TAB 25 MG PO SCH (12:00)
[2020-06-14] MEDS: SYNTHROID 25 mcg TAB PO SCH (12:00)
[2020-06-14 12:11] LABS: CALCIUM 7.5 mg/dL (8.5-10.1); CARBON DIOXIDE 38.9 mmol/L (21-32); CREATININE 1.66 mg/dL (0.70-1.30)
[2020-06-14] MEDS: DEPO-TESTOSTERONE IM SCH (12:30)
[2020-06-14 17:13] LABS: CALCIUM 7.4 mg/dL (8.5-10.1); CARBON DIOXIDE 39.1 mmol/L (21-32); CREATININE 1.57 mg/dL (0.70-1.30)
[2020-06-14] MEDS ORDERED: KAYEXALATE SUSP PO ONE (19:00)
[2020-06-14] MEDS ORDERED: LOPRESSOR INJ 5 MG AMP ONE (20:28)
[2020-06-14] MEDS: LOPRESSOR INJ 5 MG AMP IVP PRN ×4 (20:32→21:49)
[2020-06-14 20:39] LABS: ABG BASE EXCESS 13.4 mmol/L (-2.0-2.0)
[2020-06-14 20:41] LABS: ABG HCO3 42.6 mmol/L (22-26)
[2020-06-14] MEDS ORDERED: LR 1000 ML IV 1,000 ML IV ONE (20:54)
[2020-06-14] MEDS: LANOXIN INJ ONE (21:17)
[2020-06-14] MEDS ORDERED: LANOXIN INJ ONE (21:24)
[2020-06-14] MEDS: NORCURON INJ 10 MG VIAL 50 MG in NS 50 ML IV 50 ML IV PRN (22:09)
[2020-06-14] MEDS ORDERED: LANOXIN INJ IVP ONE (22:28)
[2020-06-14 22:43] LABS: CALCIUM 7.3 mg/dL (8.5-10.1); CARBON DIOXIDE 37.6 mmol/L (21-32); CREATININE 1.94 mg/dL (0.70-1.30); MAGNESIUM 2.8 mg/dL (1.7-2.9)
[2020-06-14] MEDS ORDERED: NEXTERONE IV 360 MG PREMIX* 360 MG/200 ML BAG IV PRN ×2 (22:55)
[2020-06-14] MEDS ORDERED: NEXTERONE IV 150 MG PREMIX* 150 MG/100 ML BAG IV ONE ×2 (22:55→23:01)
[2020-06-14] MEDS ORDERED: NEXTERONE IV 360 MG PREMIX* 360 MG/200 ML BAG IV ONE (23:01)
[2020-06-14] MEDS ORDERED: LASIX ONE (23:55)
[2020-06-15 00:24] LABS: BASOPHILS # (AUTO) 0.1 X10^3/uL (0.0-0.1); BASOPHILS % (AUTO) 0.7 % (0.2-1.0); HEMATOCRIT 38.7 % (42.0-54.0); HEMOGLOBIN 12.2 g/dL (13.5-18.0); LYMPHOCYTES # (AUTO) 0.6 X10^3/uL (1.3-2.9); LYMPHOCYTES % (AUTO) 3.3 % (21.0-51.0); MEAN CORPUSCULAR HEMOGLOBIN 30.2 pg (27.0-34.0); MEAN CORPUSCULAR HGB CONC 31.4 g/dL (33.0-35.0); MEAN CORPUSCULAR VOLUME 96.1 fL (80.0-100.0); MEAN PLATELET VOLUME 9.2 fL (7.4-11.0); MONOCYTES # (AUTO) 1.8 x10^3/uL (0.3-0.8); MONOCYTES % (AUTO) 11.1 % (0.0-13.0); NEUTROPHILS % (AUTO) 84.9 % (42.0-75.0); PLATELET COUNT 68 X10^3/uL (150.0-450.0); RED BLOOD COUNT 4.02 X10^6/uL (4.7-6.0); RED CELL DISTRIBUTION WIDTH 13.8 % (11.6-16.5); WHITE BLOOD COUNT 16.5 X10^3/uL (3.6-10.0)
[2020-06-15] MEDS: RHINOCORT ALLERGY NASAL SPRAY ENOSTRIL SCH ×4 (01:09→22:27)
[2020-06-15] MEDS: LEVAQUIN PREMIX IV 750 MG 750 MG/150 ML BAG IV SCH ×2 (01:33→02:00)
[2020-06-15] MEDS: LACRI-LUBE S.O.P. AFFEYE SCH ×2 (02:00→09:19)
[2020-06-15] MEDS: ASCORBIC ACID INJ MULTI-DOSE VIAL 1,500 MG in NS 100 ML IV 100 ML IV SCH ×5 (02:14→22:26)
[2020-06-15] MEDS: COREG TAB 25 MG PO SCH ×3 (02:15→22:26)
[2020-06-15] MEDS: ZINC SULFATE PO SCH ×3 (02:17→22:27)
[2020-06-15] MEDS: ELIQUIS NG SCH (02:17)
[2020-06-15] MEDS: PEPCID 20 MG IV PREMIX IV SCH (02:21)
[2020-06-15] MEDS: THIAMINE HCL INJ IVP SCH ×4 (02:21→22:45)
[2020-06-15] MEDS ORDERED: LANOXIN INJ IVP ONE (02:26)
[2020-06-15 05:05] LABS: ABG BASE EXCESS 12.3 mmol/L (-2.0-2.0)
[2020-06-15 05:06] LABS: ABG HCO3 41.7 mmol/L (22-26)
[2020-06-15] MEDS: LOPRESSOR INJ 5 MG AMP IVP PRN (06:42)
[2020-06-15 06:54] LABS: ALBUMIN 1.4 g/dL (3.4-5.0); CARBON DIOXIDE 37.9 mmol/L (21-32); COR CA(FOR HYPOALB) 9.1 mg/dL (8.5-10.1); CREATININE 2.33 mg/dL (0.70-1.30); TOTAL PROTEIN 4.4 g/dL (6.4-8.2)
[2020-06-15 06:59] LABS: BASOPHILS # (AUTO) 0.1 X10^3/uL (0.0-0.1); BASOPHILS % (AUTO) 0.4 % (0.2-1.0); HEMOGLOBIN 12.6 g/dL (13.5-18.0); LYMPHOCYTES # (AUTO) 0.5 X10^3/uL (1.3-2.9); LYMPHOCYTES % (AUTO) 3.5 % (21.0-51.0); MEAN CORPUSCULAR HEMOGLOBIN 30.9 pg (27.0-34.0); MEAN CORPUSCULAR HGB CONC 32.2 g/dL (33.0-35.0); MEAN CORPUSCULAR VOLUME 96.1 fL (80.0-100.0); MEAN PLATELET VOLUME 9.3 fL (7.4-11.0); MONOCYTES # (AUTO) 1.1 x10^3/uL (0.3-0.8); NEUTROPHILS # (AUTO) 13.8 x10^3/uL (2.2-4.8); NEUTROPHILS % (AUTO) 89.1 % (42.0-75.0); PLATELET COUNT 66 X10^3/uL (150.0-450.0); RED BLOOD COUNT 4.06 X10^6/uL (4.7-6.0); RED CELL DISTRIBUTION WIDTH 13.7 % (11.6-16.5); WHITE BLOOD COUNT 15.5 X10^3/uL (3.6-10.0)
[2020-06-15] MEDS ORDERED: NS 1/2 1000 ML IV 1,000 ML IV ONE (08:28)
[2020-06-15] MEDS: ALBUMIN HUMAN 25%- 100 ML 100 ML IV SCH ×2 (08:35→22:45)
[2020-06-15] MEDS: ATIVAN 20 MG/10 ML VIAL 20 MG in NS 100 ML IV 90 ML IV PRN ×2 (08:46→20:20)
[2020-06-15] MEDS ORDERED: PEPCID 20 MG IV PREMIX IV SCH (09:00)
[2020-06-15] MEDS: NS 1/2 1000 ML IV 1,000 ML IV SCH ×3 (09:09→20:22)
[2020-06-15] MEDS: NEXTERONE IV 360 MG PREMIX* 360 MG/200 ML BAG IV PRN ×2 (09:13→14:38)
[2020-06-15] MEDS: DECADRON INJ IVP SCH (09:19)
[2020-06-15] MEDS: PULMICORT NEB TX 0.5 MG NEB SCH ×3 (09:35→21:05)
[2020-06-15] MEDS: PROVENTIL NEB TX 0.083% 2.5MG/ 3ML NEB SCH ×2 (09:35→21:05)
[2020-06-15] MEDS ORDERED: DEPO-TESTOSTERONE IM NR (10:00)
--- NOTE | 2020-06-15 10:13 | RAD ---
HISTORYWorsening hypoxiaSTUDYChest AP [id number]/16/2021FINDINGSThere is an endotracheal tube in good position. There is a nasoga stric tube coursing below the left hemidiaphragm. Its tip is not visible. The heart is within normal limits in size. Diffuse bilateral interstitial and ground-glass infiltrates are unchanged. No pleural effusions are identified. Bony thorax is unremarkable.IMPRESSIONNo change diffuse bilateral intersti tial and ground-glass infiltrates left greater than rightElectronically signed by: AISHWARYA MICHELLE (Jun 15, 2020 10:11:56)
[2020-06-15] MEDS: LIPITOR TAB 40 MG PO SCH (11:30)
[2020-06-15] MEDS: SYNTHROID 25 mcg TAB PO SCH ×2 (11:30→12:42)
[2020-06-15] MEDS: VITAMIN D3 125 mcg (5,000 UNITS) PO SCH (11:30)
[2020-06-15] MEDS: OFIRMEV IV 1000 MG VIAL 1,000 MG/100 ML VIAL IV PRN ×2 (12:18→22:15)
[2020-06-15] MEDS ORDERED: LR 1000 ML IV 1,000 ML IV ONE (12:56)
[2020-06-15] MEDS ORDERED: NEXTERONE IV 360 MG PREMIX* 360 MG/200 ML BAG IV ONE (14:38)
[2020-06-15] MEDS ORDERED: NEXTERONE IV 360 MG PREMIX* 360 MG/200 ML BAG IV PRN (15:20)
[2020-06-15 17:11] LABS: CKMB % 0.1 % (<4); CREATINE KINASE 908 Units/L (39-308); CREATINE KINASE MB < 1.0 ng/mL (0-4.0)
[2020-06-15 17:13] LABS: TROPONIN I 5.78 ng/mL (0-1.5)
[2020-06-15] MEDS: DOPAMINE IV PREMIX 400 MG/250 ML 400 MG/250 ML BAG IV PRN ×2 (17:20→22:11)
[2020-06-15] MEDS ORDERED: LEVOPHED INJ IV STA (18:53)
[2020-06-15] MEDS ORDERED: LEVOPHED INJ 8 MG in D5W 250 ML IV 242 ML IV PRN (19:20)
[2020-06-15] MEDS ORDERED: LEVOPHED INJ ONE (19:25)
[2020-06-15] MEDS ORDERED: D5W 250 ML IV 250 ML IV ONE (19:26)
[2020-06-15] MEDS ORDERED: ELIQUIS NG SCH (21:00)
[2020-06-16 04:08] VITALS: BP 88/43
== END 2020-06-16 02:23 | disposition expired | DRG 207 ==
LOC: ER 01:18 → OBS 03:33 → ICU 15:05 → MED/SURG 06-08 23:25 → ICU 06-10 16:40
PROVIDERS: ADMIT Obstetrics & Gynecology Obstetrics; ATTEND Obstetrics & Gynecology Obstetrics
DX: I46.9 Cardiac arrest, cause unspecified; E11.65 Type 2 diabetes mellitus with hyperglycemia; R79.82 Elevated C-reactive protein (CRP); R79.89 Other specified abnormal findings of blood chemistry; R51.9 Headache, unspecified; U07.1 COVID-19; E03.8 Other specified hypothyroidism; R06.02 Shortness of breath; I48.91 Unspecified atrial fibrillation; J12.82 Pneumonia due to coronavirus disease 2019; R04.0 Epistaxis; I87.2 Venous insufficiency (chronic) (peripheral); E87.6 Hypokalemia